=== PATIENT | female | born 1950 | race Caucasian/White ===

== ENCOUNTER → 2022-09-20 09:47 | Outpatient (CLI) | payer MEDICARE, SELFPAY ==
--- NOTE | ~2022-09-20 | DEXA_ITS ---
Bone Density Report Name: CHET NULL Age: 72 Sex: Female Ethnicity: White Date of : 1950 Indication: osteopenia; height loss;postmenopausal Referring Provider: TESSIE SEXTON Study: Bone densitometry was performed. Exam Date: September 20, 2022 Accession number: [id number] Bone Density: Region BMD T-score Z-score Classification AP Spine (L1-L4) 0.868 -1.6 0.5 Osteopenia Femoral Neck (Left) 0.576 -2.5 -0.6 Osteoporosis Total Hip (Left) 0.775 -1.4 0.2 Osteopenia Femoral Neck (Right) 0.586 -2.4 -0.5 Osteopenia Total Hip (Right) 0.752 -1.6 0.0 Osteopenia Total Hip Mean 0.764 -1.5 0.1 Osteopenia World Health Organization criteria for BMD impression classify patients as: Normal (T-score at or above -1.0), Osteopenia (T-score between -1.0 and -2.5), or Osteoporosis (T-score at or below -2.5). 10-year Fracture Risk: FRAX not reported because: Some T-score for Spine Total or Hip Total or Femoral Neck at or below -2.5 Previous Exams: Region Exam Age BMD T-score BMD Change BMD Change Date g/cm2 vs Baseline vs Previous AP Spine(L1-L4) 09/20/2022 72 0.868 -1.6 -0.038* -0.007 10/17/2019 69 0.875 -1.6 -0.031* -0.061* 10/14/2014 64 0.936 -1.0 0.030* 0.030* 09/06/2011 61 0.906 -1.3 0.000 0.030* 08/19/2008 58 0.876 -1.6 -0.030* -0.030* 01/02/2007 56 0.906 -1.3 Total Hip(Left) 09/20/2022 72 0.775 -1.4 -0.121* -0.079* 10/17/2019 69 0.855 -0.7 -0.041* -0.055* 10/14/2014 64 0.909 -0.3 0.013 0.010 09/06/2011 61 0.899 -0.4 0.003 0.018 08/19/2008 58 0.881 -0.5 -0.015 -0.015 01/02/2007 56 0.896 -0.4 Total Hip(Right) 09/20/2022 72 0.752 -1.6 -0.070* -0.017 10/17/2019 69 0.769 -1.4 -0.053* -0.051* 10/14/2014 64 0.819 -1.0 -0.002 0.000 09/06/2011 61 0.819 -1.0 -0.003 -0.003 08/19/2008 58 0.822 -1.0 0.000 0.000 01/02/2007 56 0.822 -1.0 *Denotes significance at 95% confidence level, LSC for AP Spine = 0.022 g/cm2, LSC for Total Hip = 0.027 g/cm2 Clinical Information Provided by Patient: Has used the following medications: Vitamin D, Calcium Patient maximum height was 63.0 Menopause Age: 53 No regular weight bearing exercise Drinks caffeinated beverages Onset of menses at age
== END ==
PROVIDERS: PCP Obstetrics & Gynecology Gynecology; Visit Provider Obstetrics & Gynecology Gynecology
DX: Z78.0 Asymptomatic menopausal state (principal); M85.89 Other specified disorders of bone density and structure, multiple sites; M81.0 Age-related osteoporosis without current pathological fracture
CPT/HCPCS: 77080

== ENCOUNTER 2023-08-29 10:23 | Outpatient (CLI) | payer MEDICARE, SELFPAY ==
[2023-08-29 18:28] LABS: Basophils Absolute Auto 0.1 K/mm3 (0.0-0.1); Basophils Percent Auto 1.1 % (0.2-1.2); Eosinophils Absolute Auto 0.3 K/mm3 (0-0.3); Eosinophils Percent Auto 4.4 % (0-4.4); Hematocrit 43.9 % (37.0-47.0); Immature Granulocyte Absolute 0.02 K/mm3 (0.00-0.031); Immature Granulocyte Percent A 0.3 % (0-0.5); Lymphocytes Absolute Auto 1.39 K/mm3 (0.9-3.2); Lymphocytes Percent Auto 21.3 % (18.3-44.2); Mean Corpuscular HGB Conc 31.9 g/dl (32-36); Mean Corpuscular Hemoglobin 28.9 pg (26-34); Mean Corpuscular Volume 90.7 fl (80-100); Mean Platelet Volume 10.9 fl (7.4-10.4); Monocytes Absolute Auto 0.5 K/mm3 (0.1-0.6); Monocytes Percent Auto 7.5 % (2.6-8.5); Neutrophils Absolute Auto 4.3 K/mm3 (1.3-6.7); Neutrophils Percent Auto 65.4 % (45.5-73.1); Platelet Count Result 295 k/mm3 (150-375); Red Blood Count 4.84 M/mm3 (4.2-5.4); White Blood Count 6.5 K/mm3 (4.5-10.0)
[2023-08-29 20:37] LABS: Alanine Aminotransferase 16 U/L (6-35); Albumin Level 4.8 g/dL (3.5-5.1); Alkaline Phosphatase 70 U/L (38-126); Anion Gap 8 mmol/L (8-16); Aspartate Amino Transferase 47 U/L (14-36); Bilirubin,Total 0.7 mg/dL (0.2-1.3); Blood Urea Nitrogen 10 mg/dL (7-17); Calcium 9.6 mg/dL (8.4-10.2); Carbon Dioxide 29 mmol/L (22-30); Chloride 102 mmol/L (98-107); Cholesterol 189 mg/dL (0-200); Estimated Glomerular Filt Rate > 60; Glucose 95 mg/dL (65-110); HDL Direct 60 mg/dL; Potassium 3.9 mmol/L (3.4-5.0); Sodium 139 mmol/L (137-145); Triglycerides 72 mg/dL (<150)
[2023-08-29 20:42] LABS: LDL Cholesterol Direct 93 mg/dL
[2023-08-30 17:00] LABS: Rapid Plasma Reagin Non-Reactive (NonReactive)
== END 2023-08-29 10:24 | disposition home or self-care (01) ==
PROVIDERS: PCP Emergency Medicine; Visit Provider Emergency Medicine
DX: R41.3 Other amnesia (principal); E66.3 Overweight
CPT/HCPCS: 36415; 80053; 80061; 82607; 84443; 85025; 86592

== ENCOUNTER → 2023-09-17 12:34 | Outpatient (CLI) | payer MEDICARE, SELFPAY ==
--- NOTE | ~2023-09-17 | MR_ITS ---
EXAMINATION: MR brain/brain stem wo con DATE: 09/17/2023 13:44 INDICATION: Other amnesia. TECHNIQUE: Magnetic resonance imaging (MRI) of the brain and brainstem was performed without intraven ous contrast. COMPARISON: None. FINDINGS: There is no intracranial hemorrhage, acute infarction, or abnormal intracranial mass lesion . There are scattered areas of nonspecific increased T2-weighted signal intensity in the cerebral whi te matter, which is within normal limits for the patient's age. The ventricles are normal in size. Th ere is mild mucosal thickening in the paranasal sinuses. The orbits are normal. There are likely archer ges of ocular lens replacement surgeries. IMPRESSION: 1. Normal aging brain. Reviewed, dictated and finalized at location E. [facility] IMPRESSION: 1. Normal aging brain.
== END ==
PROVIDERS: PCP Emergency Medicine; Visit Provider Emergency Medicine
DX: R41.3 Other amnesia (principal)
CPT/HCPCS: 70551

== ENCOUNTER 2023-10-24 12:55 | Emergency (ER) | payer MEDICARE, SELFPAY ==
[2023-10-24 13:03] VITALS: BP 111/67; PULSE 85; RESP 16; O2SAT 99
--- NOTE | 2023-10-24 13:10 | ED.EXTPRO ---
HPI - Extremity Problem General Chief complaint: Extremity Problem,Nontraumatic Stated complaint: BOTH FEET SWELLING Time Seen by Provider: 10/24/23 13:11 Source: patient Mode of arrival: ambulatory Limitations: no limitations History of Present Illness HPI Narrative: 73 y/o female with hx memory impairment presented for c/o swelling to bilateral feet and lower legs for about 2 weeks. Also reports red itchy rash to the lower legs. Notes some small blisters to the skin. Has applied itch cream. Reports some scattered red areas across chest. Denies cp, palpitations, sob, wheezing, n/v/d/f/c. Pt is poor historian and does not recall if she has any swelling at baseline. Denies lip, tongue, or throat swelling, shortness of breath or wheezing. Denies changes to soap, detergent, lotion, or any other exposures. No one else in the house or any contacts with similar symptoms. Related Data Home Medications Medication Instructions Recorded Confirmed multivitamin 1 tablet PO DAILY 09/18/22 10/24/23 Allergies Allergy/AdvReac Type Severity Reaction Status Date / Time cat dander Allergy Intermediate Sneezing Verified 10/24/23 13:17 house dust mite Allergy Intermediate Sneezing Verified 10/24/23 13:17 Review of Systems Review of Systems: CONSTITUTIONAL: Denies body aches, fever, chills, or sweats. EYES: Denies visual changes, redness, or discharge. ENT: Denies rhinorrhea, congestion CARDIOVASCULAR: Denies chest pain, palpitations; reports BLE edema. RESPIRATORY: Denies cough or dyspnea. GASTROINTESTINAL: Denies abdominal pain, nausea, vomiting, or diarrhea. SKIN: Reports rash MUSCULOSKELETAL: Denies back pain, joint pain, or myalgia. NEUROLOGIC: Denies headache, numbness, tingling, or weakness. [facility] Past Medical History Medical History Allergies Degenerative arthritis of left knee Scoliosis deformity of spine Varicose veins of lower extremity Surgical History Surgical History History of eye surgery Family History Family History Mother Family history of lung cancer, Onset Age: 72 Patient's mother is Hypertension Father Family history of heart disease in male family member before age 55, Onset Age: 53 Patient's father is Alcoholism Other Family history of blood dyscrasia Social History Social History Smoking status: Never smoker Alcohol intake: never Substance use type: does not use Living arrangements: with family Comments At time of signature, I have reviewed and agree with nursing past medical, surgical, social and family history unless otherwise noted. Please see nursing chart for further information. There is no relevant family history pertinent to the presenting complaint Exam Narrative: GENERAL: Well-appearing HEAD: Normocephalic, atraumatic. EYES: conjunctivae clear, and EOMI. ENT: Mucous membranes moist. Oropharynx without edema, erythema or lesions. NECK: Supple. No lymphadenopathy CHEST: Clear to auscultation. HEART: Regular rate and rhythm. SKIN: Warm, dry. BLE's with erythematous dried papular rash scattered and clustered to heels and lower legs, c/w stasis dermatitis. Few scattered fluid filled blisters. No apparent cellulitis, no active drainage induration or streaking EXTREMITIES: BLE 2+ to ankles and lower legs, no swelling to feet NEURO: Alert and oriented, forgetful Course Course Emergency Course: Patient is aware of diagnosis, understands and agrees to treatment plan. Anticipatory guidance given. Patient agrees to follow-up as directed and is aware of reasons to seek care at the emergency department. Portions of this record may have been created with voice recognition software Level of Care: Expres
== END 2023-10-24 13:52 | disposition home or self-care (01) ==
PROVIDERS: Emergency Provider Nurse Practitioner Family; PCP Emergency Medicine
DX: I87.2 Venous insufficiency (chronic) (peripheral) (principal); M17.12 Unilateral primary osteoarthritis, left knee
CPT/HCPCS: 99213; G0463